=== PATIENT | male | born 1930 | race Caucasian/White ===

== ENCOUNTER 2016-09-25 18:44 | Emergency (ER) | payer MEDICARE, OTHER ==
[~2016-09-25] VITALS: Ht 177.8 cm; Wt 83.0 kg
[~2016-09-25 18:44] MED LIST: CRES20TA PO; PLAV75TA PO; ROSU40 PO
[2016-09-25 19:01] VITALS: BP 119/77; PULSE 90; RESP 20; TEMP 97.6; O2SAT 96
[2016-09-25] MEDS ORDERED: ROSU20 PO (19:08)
[2016-09-25] MEDS ORDERED: PLAV75TA29 PO (19:08)
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
[2016-09-25] MEDS ORDERED: SULFAMETHOXAZOLE-TRIMETHOPRIM DS 800-160 MG TAB PO ONE (19:30)
[2016-09-25] MEDS ORDERED: DONE5TAB7 PO (20:00)
[2016-09-25] MEDS ORDERED: NEOMYCIN/POLYMYXIN/HYDROCORT OTIC SOLN 10 ML BTL RIGHT EAR ONE (20:30)
[2016-09-25] MEDS ORDERED: NEOM1SOL7 RIGHT EAR (21:00)
[2016-09-25] MEDS ORDERED: CEPH-460 PO (21:00)
== END 2016-09-25 21:14 | disposition home or self-care (01) ==
LOC: PHED 18:44
DX: H60.91 Unspecified otitis externa, right ear (principal); H61.21 Impacted cerumen, right ear; F17.210 Nicotine dependence, cigarettes, uncomplicated; L03.113 Cellulitis of right upper limb; Z79.01 Long term (current) use of anticoagulants; E78.00 Pure hypercholesterolemia, unspecified; W22.03XA Walked into furniture, initial encounter; Y93.9 Activity, unspecified; Y92.9 Unspecified place or not applicable; Y99.9 Unspecified external cause status
CPT/HCPCS: 69200

== ENCOUNTER 2016-09-27 17:55 | Emergency (ER) | payer OTHER ==
[~2016-09-27] VITALS: Ht 180.3 cm; Wt 83.0 kg
[~2016-09-27 17:55] MED LIST changes: +CEPH-460 PO; -CRES20TA PO; +DONE5TAB7 PO; +NEOM1SOL7 RIGHT EAR; -PLAV75TA PO; +PLAV75TA29 PO; +ROSU20 PO; -ROSU40 PO
[2016-09-27 17:57] VITALS: BP 142/81; PULSE 95; RESP 16; TEMP 97.5; O2SAT 97
--- NOTE | 2016-09-27 18:11 | PD ---
HPI Chief Complaint: Wound/Suture/Staple Re-Check Time Seen by Provider: 18:08 Travel History International Travel<30 days: No Contact w/Intl Traveler<30days: No Traveled to known affect area: No History of Present Illness HPI 86-year-old male presents to the ED for evaluation of 2 day history of painful rash of the right upper extremity. Patient states that he "bumped the arm" a few days ago and thought that a smaller area was related to that, however the rash has spread. Patient denies fever or chills. Son is at bedside and helps to provide the history. Patient was seen a few days ago, diagnosed with cellulitis, provided antibiotics. PFSH Past Medical History Hx Anticoagulant Therapy: Yes (PLAVIX) High Cholesterol: Yes Cerebrovascular Accident: Yes (CVA: 2003) Dementia: Yes Ulcer: Yes (GASTRIC) Past Surgical History Abdominal Surgery: Yes (UMBILICAL HERNIA REPAIR) Tonsillectomy: Yes Social History Alcohol Use: No Tobacco Use: Yes (1PPD) Substance Use: No Allergies-Medications (Allergen,Severity, Reaction): Coded Allergies: No Known Allergies (Unverified , 09/27/16) Reported Meds & Prescriptions Reported Meds & Active Scripts Active Ultracet (Tramadol-Acetaminophen) 37.5-325 mg Tab 1 Tab PO Q6H PRN Valacyclovir (Valacyclovir HCl) 1 Gm Tab 1,000 Mg PO TID 10 Days Vugogycm-Lagmeawll-IM Otic Drops 3.5-10,000-1 Mg-Units-% Soln 4 Drop RIGHT EAR QID 14 Days Keflex (Cephalexin) 500 Mg Capsule 500 Mg PO TID 10 Days Reported Donepezil 5 Mg Tab 5 Mg PO HS Crestor (Rosuvastatin Calcium) 20 Mg Tab 20 Mg PO DAILY Plavix (Clopidogrel Bisulfate) 75 Mg Tab 75 Mg PO DAILY Review of Systems Except as stated in HPI: all other systems reviewed are Neg Physical Exam Narrative GENERAL: Well-nourished, well-developed pleasantly demented white male in no acute distress. SKIN: Focused skin assessment warm/dry. Vesicular rash of the medial aspect of the right arm, right anterior chest and right posterior shoulder. This does not cross the midline. Consistent with shingles. HEAD: Normocephalic. EYES: No scleral icterus. No injection or drainage. NECK: Supple, trachea midline. No JVD or lymphadenopathy. CARDIOVASCULAR: Regular rate and rhythm without murmurs, gallops, or rubs. RESPIRATORY: Breath sounds equal bilaterally. No accessory muscle use. GASTROINTESTINAL: Abdomen soft, non-tender, nondistended. MUSCULOSKELETAL: No cyanosis, or edema. Patient retains full, active, painless ROM of the bilateral upper extremities. BACK: Nontender without obvious deformity. No CVA tenderness. Data Data Last Documented VS Vital Signs Date Time Temp Pulse Resp B/P Pulse Ox O2 Delivery O2 Flow Rate FiO2 09/27/16 17:57 97.5 95 16 142/81 97 Orders Valacyclovir (Valtrex) (09/27/16 18:15) Tramadol-Acetamin 37.5-325 Mg (Ultracet (09/27/16 18:15) MDM Medical Decision Making Medical Screen Exam Complete: Yes Emergency Medical Condition: Yes Differential Diagnosis Herpes zoster versus cellulitis versus skin rash versus other Narrative Course 86-year-old male presents to the ED for evaluation of 2 day history of painful rash of the right upper extremity. Patient states that he "bumped the arm" a few days ago and thought that a smaller area was related to that, however the rash has spread. Patient denies fever or chills. Son is at bedside and helps to provide the history. Patient was seen a few days ago, diagnosed with cellulitis, provided antibiotics. Vitals reviewed. Physical exam consistent with herpes zoster in the C5/C6 distribution. Patient was prescribed Ultracet and acyclovir, first dose is administered in the ED. Patient's son was instructed to admission medication as prescribed, keep the rash covered to minimize shedding, follow-up with the primary care provider. He indicated understanding of instructions and is agreeable care plan. The patient is stable and discharged home. Diagnosis Primary Impression: Shingles Qualified Code: B02.9 - Herpes zoster without complication Referrals: Primary Care Physician Patient Instructions: General Instructions, Shingles (ED) Additional Instructions: Rest, hydrate. Keep the rash clean, dry and covered. Take antivirals as prescribed. Take tramadol as needed for pain greater than 6. Take Tylenol as described on the label, as needed for pain 1 through 6. Monitor for signs of secondary infection as discussed. Follow-up with the primary care provider this week. Return to the ED for any urgent or emergent medical condition. Med/Other Pt SpecificInfo: Prescription(s) given Scripts Tramadol-Acetaminophen (Ultracet)37.5-325 mg Tab1 Tab PO Q6H PRN (PAIN GREATER THAN 6) #10 TAB Ref 0 Prov:Duglas Ray MD 09/27/16 Valacyclovir 1 Gm Tab1,000 Mg PO TID 10 Days Ref 0 Prov:Duglas Ray MD 09/27/16 Disposition: 01 DISCHARGE HOME Condition: Stable Cheyenne Frost Sep 27, 2016 18:11
[2016-09-27] MEDS ORDERED: TRAM50TA PO (18:12)
[2016-09-27] MEDS ORDERED: VALA1TAB PO (18:12)
[2016-09-27] MEDS ORDERED: ULTR37.55 PO ×2 (18:14→18:15)
[2016-09-27] MEDS ORDERED: traMADol/ACETAMINOPHEN 37.5/325 1 TAB PO ONE (18:15)
[2016-09-27] MEDS ORDERED: valACYclovir HCL 500 MG TAB PO ONE (18:15)
== END 2016-09-27 18:35 | disposition home or self-care (01) ==
LOC: PHEFT 17:55
DX: B02.9 Zoster without complications (principal); E78.00 Pure hypercholesterolemia, unspecified; F17.210 Nicotine dependence, cigarettes, uncomplicated; Z79.01 Long term (current) use of anticoagulants
CPT/HCPCS: 99284